=== PATIENT | female | born 1995 | race Caucasian/White ===

== ENCOUNTER 2017-11-21 20:12 | Emergency (ER) | payer MEDICAID, SELFPAY ==
[2017-11-21 20:13] VITALS: BP 147/82; PULSE 121; RESP 20; TEMP 36.7; O2SAT 98; BMI 43.7
--- NOTE | 2017-11-21 20:13 | ED.RN ---
NO OLD EKG'S IN MUSE\
[2017-11-21 20:19] VITALS: PULSE 108; RESP 15; O2SAT 96
--- NOTE | 2017-11-21 20:29 | EKG12_ITS ---
Test Reason : CP Blood Pressure : / mmHG Vent. Rate : 108 BPM Atrial Rate : 108 BPM P-R Int : 128 ms QRS Dur : 074 ms QT Int : 322 ms P-R-T Axes : 059 017 031 degrees QTc Int : 431 ms Sinus tachycardia Otherwise normal ECG Confirmed by CARYL MCDANIELS, LUCITA ([id number]), telegraph editor ELIA JARQUIN ([id number]) on 11/23/2017 2:46:33 PM Referred By: ROBINSON Confirmed By:LUCITA HUTSON MD
--- NOTE | 2017-11-21 20:30 | RAD_ITS ---
STUDY: X-RAY CHEST REASON FOR EXAM: Female, 22 years old. Chest pain, dyspnea TECHNIQUE: Frontal and lateral views COMPARISON: None. FINDINGS: The lungs are clear and expanded. There is no demonstrated pleural abnormality. Normal size heart. Normal mediastinum and crow. Normal visualized pulmonary arteries. Normal visualized aortic arch and descending thoracic aorta. Normal visualized thoracic spine. Normal visualized ribs, clavicles, and shoulders. There is no demonstrated abnormality of the visualized soft tissue structures of the upper abdomen. RAD/Chest PA and Lateral IMPRESSION: Normal x-ray examination of the chest. Electronically Signed: Ramirez Villatoro DO at 21:13 EDT Tel [phone], Service support ,
[2017-11-21 20:47] LABS: Absolute Neutrophil Count 8.9 X10^3/uL (2.0-7.7); Basophil# 0.02 X10^3/uL; Basophil% 0.1 % (0-1); Eosinophil# 0.09 X10^3/uL; Eosinophils% 0.6 % (0-5); Hematocrit 39.8 % (37-47); Hemoglobin 12.6 g/dl (12.0-15.0); Lymphocyte % 32.2 % (19-41); Mean Corp Hgb Conc 31.7 g/gl (32-36); Mean Corpuscular Hgb 27.5 pg (27.0-32.0); Mean Corpuscular Volume 86.7 fL (81-99); Mean Platelet Vol. 9.3 fl (6.2-12.0); Monocyte# 1.21 X10^3/uL; Neutrophil # 8.87 X10^3/uL (2.7-7.7); Neutrophil % 58.2 % (47-70); Platelet Count 343 K/mm3 (150-450); RBC Distribution Width SD 47.7 fl (35.1-43.9); Red Blood Count 4.59 M/mm3 (4.2-5.4); White Blood Count 15.2 K/mm3 (4.4-11.0)
[2017-11-21 20:51] LABS: POSITIVE COUNT NO; POSITIVE DIFFERENTIAL NO; POSITIVE MORPHOLOGY NO
[2017-11-21 20:54] LABS: D-Dimer Quantitative (DVT/PE) < 0.27 FEU/ug/m (0.27-0.49)
[2017-11-21 21:00] LABS: Anion Gap 8 (5-15); BUN 20 mg/dL (7-18); BUN/Creat Ratio 26.5 RATIO (10-20); Calcium,Total 8.4 mg/dL (8.5-10.1); Chloride 106 mmol/L (98-107); Creatinine, Serum 0.76 mg/dL (0.55-1.02); EST Glomerular Filtration Rate 104 mL/min (>60); Est Glom Filt Rate - Afr Amer 125 mL/min (>60); Estimated Creatinine Clearance 84.81 ml/min; Glucose 87 mg/dL (74-106); Potassium 3.6 mmol/L (3.5-5.1); Sodium Level 143 mmol/L (136-145)
[2017-11-21 21:03] VITALS: BP 121/76; PULSE 122; RESP 21; O2SAT 97
[2017-11-21] MEDS: Ketorolac 30 MG/ML Syringe IV (21:03)
--- NOTE | 2017-11-21 21:46 | ED.DCSUM_ITS ---
- ER Visit Summary Date of Service: 11/21/17 Chief Complaint: [Chest pain] History of Present Illness: The patient is a 22 F [presents to the ER with complaint of chest discomfort that started 4 days ago. Patient describes it as retrosternal. Patient states that it is sharp and stabbing and worse with deep breath. Patient initially had intermittent pain but now has become continuous. Patient denies any fever or cough. She denies recent travel or surgery. She does not take oral contraceptives. Patient is a smoker. Patient denies any trauma to her chest. No family history of Marfan's or connective tissue disorders.] Physical Examination: [HEENT-PERRLA, EOMI. Cranial nerves II through XII grossly intact. TMs clear. Mucous membranes moist. No adenopathy. Cardiovascular-regular rate and rhythm without murmur or ectopy Lungs-clear to auscultation, chest wall stable without crepitus or subcu emphysema. Patient has tenderness to palpation over these anterior chest and sternum that reproduces her pain. Abdomen-normoactive bowel sounds, soft, nontender, no rebound or rigidity, no peritoneal signs. Extremities-intact ?4, normal range of motion, normal pulses, atraumatic] Test Results: [EKG obtained on arrival showed a sinus tachycardia with a ventricular rate of 108 bpm with no acute ST segment changes. CBC with differential was slightly elevated white count of 15.2, hemoglobin 12, hematocrit 39.8, platelets 343. Chemistries unremarkable. Troponin was less than 0.02. D-dimer was less than 0.27. Chest x-ray showed nothing acute.] Emergency Department Course and Treatment: [Patient was medicated with Toradol in the emergency department and did have some mild pain relief.] Treatment Plan: [Patient will be treated with naproxen and will be given 12 [place] for severe pain.] Disposition: [Discharged home in stable condition. Patient will be referred to primary care physician instruction assistant principal for no doc. Patient advised to follow-up within the next 3-5 days. Patient to return if increasing pain, fever, shortness of breath, or condition should worsen in any way.] Impression: [Chest wall pain] This note was generated with [employer] dictation software. It may contain incorrect words, spelling, and punctuation that were not noted in review of the chart prior to signing ED Disposition - Plan for ED Patient: Chief Complaint: Chest Pain Referrals: Cassie Del Rosario MD [Primary Care Provider] -
--- NOTE | 2017-11-21 21:46 | ED.DEP ---
ED Disposition - Plan for ED Patient: Chief Complaint: Chest Pain Instructions: ED Chest Pain Costochondritis Prescriptions: Hydrocodone Bitart/Apap 5-325 [[place] 5/325] 1 - 2 tab PO Q4H PRN PRN 3 Days #12 tab PRN Reason: Pain Naproxen [Naprosyn] 500 mg PO BID #20 tab Referrals: Cassie Del Rosario MD [Primary Care Provider] - Mj Durbin MD [STAFF PHYSICIAN] - 3-5 Days
--- NOTE | 2017-11-21 21:49 | DCINST.ED_ITS ---
ED Disposition - Plan for ED Patient: Chief Complaint: Chest Pain Instructions: ED Chest Pain Costochondritis Prescriptions: Hydrocodone Bitart/Apap 5-325 [[place] 5/325] 1 - 2 tab PO Q4H PRN PRN 3 Days #12 tab PRN Reason: Pain Naproxen [Naprosyn] 500 mg PO BID #20 tab Referrals: Cassie Del Rosario MD [Primary Care Provider] - Mj Durbin MD [STAFF PHYSICIAN] - 3-5 Days
[2017-11-21 22:08] VITALS: BP 105/52; PULSE 99; RESP 16; O2SAT 94
[2017-11-21] MEDS: HYDROcodone Bitartrate/Apap 5/325 Tablet PO (22:08)
== END 2017-11-21 22:13 | disposition home or self-care (01) ==
PROVIDERS: Emergency Provider Emergency Medicine; Family Provider Family Medicine; PCP Family Medicine
DX: R07.9 Chest pain, unspecified (principal); R07.89 Other chest pain; J45.909 Unspecified asthma, uncomplicated; R00.0 Tachycardia, unspecified; Z72.0 Tobacco use
CPT/HCPCS: 71046; 80048; 84484; 85025; 85379; 93005; 96374; 99285; A4216

== ENCOUNTER 2017-11-23 22:02 | Emergency (ER) | payer MEDICAID, SELFPAY ==
[2017-11-23 22:03] VITALS: BP 125/87; PULSE 125; RESP 16; TEMP 37.4; O2SAT 97; BMI 41.3
--- NOTE | 2017-11-23 22:36 | NURSING ---
PT STATES THAT THE MEDICATIONS SHE WAS GIVEN THE LAST TIME SHE WAS HERE ARE NOT WORKING.
--- NOTE | 2017-11-23 22:39 | EKG12_ITS ---
Test Reason : CP Blood Pressure : / mmHG Vent. Rate : 118 BPM Atrial Rate : 118 BPM P-R Int : 122 ms QRS Dur : 074 ms QT Int : 332 ms P-R-T Axes : 072 030 041 degrees QTc Int : 465 ms Sinus tachycardia Otherwise normal ECG Confirmed by CARYL MCDANIELS, LUCITA ([id number]), food editor ELIA JARQUIN ([id number]) on 11/27/2017 1:40:06 PM Referred By: JIMY FERNANDO Confirmed By:LUCITA HUTSON MD
[2017-11-23] MEDS: Aspirin 81 MG TAB.CHEW 324 MG PO (22:58)
[2017-11-23] MEDS: LORazepam 2 MG/ML Syringe 1 MG IV (22:59)
[2017-11-23] MEDS: Morphine 4 MG/ML Syringe 2 MG IV (22:59)
[2017-11-23 23:01] VITALS: BP 108/82; PULSE 112; RESP 18; O2SAT 98
[2017-11-23 23:16] LABS: Absolute Lymphocyte Count 2.83 X10^3/ul (0.83-4.51); Absolute Neutrophil Count 8.2 X10^3/uL (2.0-7.7); Basophil# 0.03 X10^3/uL; Basophil% 0.2 % (0-1); Eosinophil# 0.23 X10^3/uL; Eosinophils% 1.9 % (0-5); Hematocrit 37.1 % (37-47); Hemoglobin 11.9 g/dl (12.0-15.0); Lymphocyte # 2.83 X10^3/ul (4.0); Lymphocyte % 23.2 % (19-41); Mean Corp Hgb Conc 32.1 g/gl (32-36); Mean Corpuscular Hgb 27.7 pg (27.0-32.0); Mean Corpuscular Volume 86.5 fL (81-99); Mean Platelet Vol. 9.3 fl (6.2-12.0); Monocyte# 0.85 X10^3/uL; Neutrophil # 8.16 X10^3/uL (2.7-7.7); Platelet Count 329 K/mm3 (150-450); RBC Distribution Width CV 14.5 % (11.6-14.6); RBC Distribution Width SD 45.1 fl (35.1-43.9); Red Blood Count 4.29 M/mm3 (4.2-5.4); White Blood Count 12.2 K/mm3 (4.4-11.0)
[2017-11-23 23:17] LABS: POSITIVE COUNT NO; POSITIVE DIFFERENTIAL NO; POSITIVE MORPHOLOGY NO
[2017-11-23 23:41] LABS: Anion Gap 9 (5-15); BUN 21 mg/dL (7-18); BUN/Creat Ratio 29.1 RATIO (10-20); Calcium,Total 8.2 mg/dL (8.5-10.1); Chloride 105 mmol/L (98-107); Creatinine, Serum 0.72 mg/dL (0.55-1.02); EST Glomerular Filtration Rate 109 mL/min (>60); Est Glom Filt Rate - Afr Amer 132 mL/min (>60); Estimated Creatinine Clearance 98.58 ml/min; Glucose 107 mg/dL (74-106); Sodium Level 142 mmol/L (136-145)
[2017-11-24 00:05] VITALS: BP 114/84; PULSE 123; RESP 14; O2SAT 97
--- NOTE | 2017-11-24 00:20 | CT_ITS ---
STUDY: CTA CHEST REASON FOR EXAM: Female, 22 years old. Back pain chest pain RADIATION DOSAGE (If Supplied By Facility): CTDIvol = ( 11.07 ) mGy, DLP = ( 699.19 ) mGycm TECHNIQUE: The examination was performed with the intravenous administration of 100 ml of Isovue 370 contrast material. Post-processing of the angiographic images was performed, with multiplanar reformation and 3D reconstruction. Individualized dose optimization techniques were used for this CT. COMPARISON: None. FINDINGS: Normal enhancement of the main pulmonary artery and right and left pulmonary arteries. Normal enhancement of the bilateral peripheral pulmonary arteries. There is no demonstrated pulmonary embolism. Normal thoracic aorta and visualized great vessels. There is no demonstrated aortic dissection. Normal heart and pericardium. Normal mediastinum. Normal hilar regions. Normal visualized trachea and bronchi. The lungs are well expanded. Normal pulmonary parenchyma. Normal pleura. Normal chest wall structures. There are multilevel Schmorl's nodes. The liver is fatty infiltrated. CT/CTA Chest W/WO Contrast IMPRESSION: Normal CTA chest examination, without a demonstrated pulmonary embolism or arterial dissection. Multilevel Schmorl's nodes. No visualized acute loss of height or alignment. Electronically Signed: Lizzie Garcia MD at 1:15 EDT Tel , Service support ,
--- NOTE | 2017-11-24 01:26 | ED.VISSUMM ---
- ER Visit Summary Date of Service: 11/24/17 Chief Complaint: [] Chest pain History of Present Illness: The patient is a 22 F [] morbidly obese complaining of diffuse upper thoracic chest and back pain over the last 3-4 days. She reports she was seen in this emergency department 2 days ago and had a chest pain workup including a chest x-ray, EKG, blood work and d-dimer that were all negative. She was diagnosed with costochondritis and provided both NSAIDs and narcotic analgesia. She reports this is minimally improved her symptoms. She is here complaining of worsening of midsternal chest discomfort. Physical Examination: [] Afebrile, vital signs stable. Cardiovascular exam reveals mild tachycardia with regular rhythm. Lungs are clear to auscultation. Abdomen is obese, soft, nontender. There is no significant lower extremity edema. Test Results: [] CBC revealed white blood cell count 12.2. Electrolytes normal. Calcium was slightly low at 8.2. Troponin was negative at less than 0.02. EKG showed normal sinus rhythm rate of 118 without ectopy or ischemic changes, unchanged from previous EKG. CTA chest negative for PE or dissection. Emergency Department Course and Treatment: [] Patient was given aspirin upon arrival as well as intravenous morphine and intravenous Ativan. She had improvement of symptoms on serial exam. However she continued to complain of midsternal discomfort. I obtain a CTA of the chest which revealed no lesions consistent with aortic dissection or pulmonary embolism. Radiologist did note Schmorl's nodes. I am not sure if this is the potential cause of her symptoms as this appears to be a protrusion of tissue into the spinal canal. Treatment Plan: [] Follow-up with PCP. Disposition: [] Discharge, stable. Impression: [] Chest pain, unknown etiology This note was generated with [employer] dictation software. It may contain incorrect words, spelling, and punctuation that were not noted in review of the chart prior to signing ED Disposition - Plan for ED Patient: Chief Complaint: Chest Pain Referrals: Cassie Del Rosario MD [Primary Care Provider] -
--- NOTE | 2017-11-24 01:29 | ED.DEP ---
ED Disposition - Plan for ED Patient: Disposition: Home or Assisted Living Chief Complaint: Chest Pain Instructions: ED Chest Pain Noncardiac Ch Referrals: Cassie Del Rosario MD [Primary Care Provider] -
[2017-11-24 01:33] VITALS: BP 124/87; PULSE 121; RESP 18; O2SAT 98
== END 2017-11-24 01:57 | disposition home or self-care (01) ==
PROVIDERS: Emergency Provider Emergency Medicine; Family Provider Family Medicine; PCP Family Medicine
DX: R07.9 Chest pain, unspecified (principal); J45.909 Unspecified asthma, uncomplicated; E66.01 Morbid (severe) obesity due to excess calories
CPT/HCPCS: 71275; 80048; 84484; 85025; 93005; 96374; 96375; 99284; J7050; Q9967; A4216

== ENCOUNTER 2018-01-07 23:26 | Emergency (ER) | payer MEDICAID, SELFPAY ==
[2018-01-07 23:27] VITALS: BP 142/84; PULSE 104; RESP 18; TEMP 36.8; O2SAT 100; BMI 43.2
--- NOTE | 2018-01-08 00:01 | ED.VISSUMM ---
- ER Visit Summary Date of Service: 01/08/18 Chief Complaint: Abdominal pain History of Present Illness: The patient is a 22 F 1 week history of intermittent epigastric abdominal pain. Pain sometimes worse with meals. Vomiting 3 days ago, none since. No hematemesis. Tolerating oral fluids. Normal stools, last bowel movement today. No NSAID use. She is on omeprazole 40 mg daily for the past month. Admits to tobacco history. No alcohol or illicit drug use. No surgical history. States that previous similar symptoms in the past that were self-limiting. Last menstrual period within the last month, has concerns that she could be . She is taken for separate home pregnancies at all been negative. Physical Examination: General: Alert and oriented ?3, no acute distress HEENT: Normocephalic, atraumatic. Moist mucosa membranes Neck: supple, nontender. Cardiovascular: Regular rate and rhythm, no murmurs Respiratory: Normal breath sounds, symmetric, no distress Abdomen: Soft, mild epigastric tenderness without guarding or rebound, nondistended. Negative Denton's or McBurney's tenderness. No pelvic tenderness. Extremities: Nontender, no edema, pulses intact ?4 Neuro: no focal neurological deficits. Test Results: Serum hCG negative Emergency Department Course and Treatment: Patient nonsurgical abdomen. History concerns for gastritis symptoms. Has been no melena. GI cocktail given with improvement. She is currently on omeprazole, Carafate added. Concerns of , serum hCG obtained which was negative. Treatment Plan: [] Disposition: Discharge Impression: Gastritis This note was generated with [employer] dictation software. It may contain incorrect words, spelling, and punctuation that were not noted in review of the chart prior to signing ED Disposition - Plan for ED Patient: Disposition: Home or Assisted Living Chief Complaint: Abd Pain Diagnosis: Gastritis Instructions: ED Gastritis Prescriptions: Sucralfate [Carafate] 1 gm PO 4X/DAY #60 tablet Referrals: Collins Jauregui MD [Primary Care Provider] - 5-7 Days
[2018-01-08 00:40] LABS: Pregnancy, Serum, hCG Quali. NEGATIVE Negative (0-9 Nonpreg)
[2018-01-08 02:05] VITALS: BP 118/93; PULSE 93; RESP 14; O2SAT 96
== END 2018-01-08 02:06 | disposition home or self-care (01) ==
PROVIDERS: Emergency Provider Emergency Medicine; Family Provider Family Medicine; PCP Family Medicine
DX: K29.70 Gastritis, unspecified, without bleeding (principal); K21.9 Gastro-esophageal reflux disease without esophagitis; Z72.0 Tobacco use
CPT/HCPCS: 84703; 99283

== ENCOUNTER → 2018-02-19 14:13 | Outpatient (CLI) | payer MEDICAID, SELFPAY ==
[2018-02-19 16:35] LABS: Thyroid Stim Hormone (TSH) 1.98 uIU/mL (0.358-3.74)
== END ==
PROVIDERS: Family Provider Family Medicine; PCP Family Medicine; Visit Provider Family Medicine
DX: F32.9 Major depressive disorder, single episode, unspecified (principal)
CPT/HCPCS: 36415; 84443

== ENCOUNTER 2019-04-14 22:28 | Emergency (ER) | payer MEDICAID, SELFPAY ==
[2019-04-14 22:29] VITALS: BP 132/85; PULSE 110; RESP 18; TEMP 36.2; O2SAT 98; BMI 35.4
--- NOTE | 2019-04-14 22:32 | RAD_ITS ---
HISTORY: left foot and ankle pain COMPARISON: None FINDINGS: # of images incl. paperwork: 3 XR Foot Min 3 Views : No fracture or subluxation. No osseous or soft tissue abnormality. The joint spaces are well-maintained. No radiopaque foreign body is seen. RAD/Foot min 3 Views IMPRESSION: Normal left foot. at 2310 Reported and signed by: Ag Rich MD Electronically Signed: Ag Rich MD at 23:09 EDT Tel , Service support ,
--- NOTE | 2019-04-14 22:35 | RAD_ITS ---
HISTORY: left foot and ankle pain COMPARISON: None FINDINGS: # of images incl. paperwork: 3 XR Ankle Min 3 Views : The catheter appears to be thickened with some edema. Most of this I believe is fat. No fracture or osseous abnormality. The ankle mortise is slightly asymmetric, with some widening laterally. Soft tissue swelling is is present focally about the ankle. RAD/Ankle min 3 Views IMPRESSION: Likely no injury to the left ankle. Slight asymmetry, with relative widening into the lateral aspect to the ankle mortise on the oblique views could be normal for this patient at 2308 Reported and signed by: Ag Rich MD Electronically Signed: Ag Rich MD at 23:07 EDT Tel , Service support ,
--- NOTE | 2019-04-14 23:22 | ED.DCSUM_ITS ---
History of Present Illness Chief Complaint: Lower Extremity Injury Informant: Patient Occurred: Today, Weeks - 1 week ago Mechanism/Context: Injury - Foot went into a hole and she complains of pain dorsal lateral foot. Current Severity: Mild Maximum Severity: Moderate Worsened by: Weightbearing Relieved by: Rest Associated Symptoms: Negative for: Parasthesia, Weakness, Loss of Funtion Narrative: Patient is a 23-year-old who presents with injury to the left foot and ankle. This occurred while walking across a baseball field. She states she twisted her foot/ankle when it went into a hole. She went into more than one hole. She denies paresthesia, anesthesia motors. She denies prior injury. Tetanus Immunization: <5 years Prior similar symptoms: No Recent Illness/Hospitalization: No - Past Medical History (1) No significant past medical history Status: Acute Past Medical History - Allergies and Home Meds Allergies/Adverse Reactions: Allergies No Known Allergies Allergy (Verified 04/14/19 22:31) Primary Care Physician: NOT,DEFINED [Primary Care Provider] - Past Medical History: None Surgical History: no surgical history Smoking Status: Never smoker Alcohol: None Drugs: None Review of Systems General: Denies: Chills, Fever, Malaise, Subjective, Sweats Musculoskeletal: Reports: Extremity Pain. Denies: Myalgias, Arthralgias, Neck pain, Back pain, Swelling, -, - Skin: Denies: Rash, Wounds Neurological: Denies: Weakness, Parasthesia, Numbness Hematologic: Denies: Easy bruising, Easy bleeding Allergy: Denies: Uticaria, Swelling of the mouth Physical Exam Vital Signs/Narrative: Vital Signs Temp Pulse Resp BP Pulse Ox 04/14/19 22:29 97.2 F L 110 H 18 132/85 H 98 Inital Vital Signs reviewed: Yes - Extremity Exam Left Tib Fib: Negative for: Abrasion, Contusion, Deformity, Edema, Hematoma, Limited ROM, - Left Ankle: Negative for: Abrasion, Contusion, Deformity, Edema, Hematoma, Limited ROM, - - There is no pain the patient over the lateral medial malleolus. No laxity with drawer testing. There is pain palpation over the anterior talofibular ligament. Left Foot: Negative for: Abrasion, Contusion, Deformity, Edema, Hematoma, Limited ROM, - - There is pain to palpation over the fifth metatarsal. Left Toe: Negative for: Abrasion, Contusion, Deformity, Edema, Hematoma, Limited ROM, - General: Well nourished, Well developed, Obese Head: Normocephalic, Atraumatic Eyes: Perrl, EOMI. Negative for: Pale conjunctiva, Scleral icterus, - Cardiovascular: Regular rate, Regular rhythm Respiratory: No distress Skin: Normal color, No rash. Negative for: Cyanosis, Diaphoresis, Jaundice Neurological: Alert, Oriented x3, Cranial nerves II-XII grossly intact, Normal Strength, Normal Sensation. Negative for: Normal Gait Psychological: Normal affect Diagnostic/Tx/Re-eval Chest X-Ray - ED: Read by ED Physician, - - Review x-ray of the ankle and 3 view x-ray of the foot was obtained. There is slight asymmetry of the ankle joint /mortise. With no pain to palpation and laxity with drawer testing suspect this is an anatomical variant. X-ray of the foot reveals no evidence of fracture or foreign body. There is no evidence of subluxation either. Specifically there is no fracture fifth metatarsal. - Medical Decision Making X-ray of the foot and ankle was placed per nurse protocol. Since patient's had persistent pain and localizes pain to the fifth metatarsal she needed an x-ray to rule out fracture versus contusion versus strain. ED Disposition - Plan for ED Patient: Disposition: Home or Assisted Living Diagnosis: Sprain of anterior talofibular ligament of left ankle, Strain of tendon of left foot and ankle Instructions: Sprain Foot Referrals: NOT,DEFINED [Primary Care Provider] - Additional Instructions: Take either 4 Advil every 8 hours or 2 Aleve every 12 hours for the next 3 to 5 days for your pain. Recommend ice 6-8 times a day for 20 to 30 minutes per application. Recommend drawing the alphabet with your foot 4-6 times a day for the next 5 to 7 days. Do not wear heeled shoes and no flip-flops. No inclines or climbing ladders.
[2019-04-14 23:59] VITALS: BP 132/85; PULSE 101; RESP 17; O2SAT 98
== END 2019-04-15 | disposition home or self-care (01) ==
PROVIDERS: Emergency Provider Emergency Medicine; Family Provider Family Medicine; PCP Family Medicine
DX: S93.492A Sprain of other ligament of left ankle, initial encounter (principal); S96.912A Strain of unspecified muscle and tendon at ankle and foot level, left foot, initial encounter; X50.1XXA Overexertion from prolonged static or awkward postures, initial encounter; Y93.01 Activity, walking, marching and hiking; Y92.320 Baseball field as the place of occurrence of the external cause; Y99.8 Other external cause status
CPT/HCPCS: 73610; 73630; 99282

== ENCOUNTER 2019-12-04 20:42 | Emergency (ER) | payer BC, SELFPAY ==
[2019-12-04 20:44] VITALS: BP 123/84; PULSE 120; RESP 18; TEMP 36.7; O2SAT 98; BMI 47.6
--- NOTE | 2019-12-04 21:05 | ED.VISSUMM ---
- ER Visit Summary Date of Service: 12/04/19 Chief Complaint: Vaginal bleeding mild cramping History of Present Illness: The patient is a 24 F states she took a test 1 to 2 weeks ago. Believes she is about 6 weeks . She is never been before. G1, P0 Ab0. Last normal menstrual period was October 23, 2019. No history of any prior STD or PID. No dysuria. Patient states today had some cramping and some mild vaginal bleeding. Not bleeding heavy. Currently no significant pain. No discharge. No passage of tissue. She is made a appointment but does not for 1 to 2 weeks at the [facility]. Physical Examination: Well-appearing 24-year-old female no acute distress vital signs stable afebrile. H EENT exam unremarkable. Lungs clear to auscultation. Heart regular rhythm rate about 110 no murmur. Abdomen is soft nontender normal bowel sounds no peritoneal signs. No significant suprapubic tenderness. Patient is moving all 4 extremities. Neurologically she is awake and alert with no focal motor deficits. Test Results: ABO Rh is O+. Quantitative hCG equals 1, 481. Pelvic ultrasound done by surveying technician read by the radiologist as positive gestational sac at 4 weeks 6 days. No yolk sac or embryo seen. Estimated date of delivery 08/06/2020. Repeat exam patient doing well at 10:57 PM and will be discharged to home with follow-up with her POLICE SHIFT COMMANDER. Emergency Department Course and Treatment: Patient with reported early with mild vaginal bleeding. Miscarriage versus other etiology. Ectopics in the differential but she is currently on limited no pain whatsoever. Treatment Plan: Follow-up with Dr. Carly Claire at the [facility]. Tylenol for pain. Return if much heavier bleeding. Disposition: Discharge Impression: Acute vaginal bleeding Threatened miscarriage at 4 weeks and 6 days by ultrasound Blood type O+ This note was generated with [employer] dictation software. It may contain incorrect words, spelling, and punctuation that were not noted in review of the chart prior to signing ED Disposition - Plan for ED Patient: Referrals: Collins Jauregui MD [STAFF PHYSICIAN] -
[2019-12-04 22:01] LABS: hCG Titer Quant., Serum 1481 mIU/mL (1-3)
--- NOTE | 2019-12-04 22:05 | US_ITS ---
STUDY: FIRST TRIMESTER OBSTETRICAL ULTRASOUND REASON FOR EXAM: Female, 24 years old BLEEDING AND CRAMPING - STARTED 3 HOURS AGO beta-hCG 1481 LMP: 10/23/2019 TECHNIQUE: Transvaginal TECHNICAL QUALITY: Adequate. PRIOR ULTRASOUND: None. FINDINGS: There is visualization of a single gestational sac in a normal intrauterine position. The mean sac diameter (MSD) measures 3.3 mm, indicating an estimated gestational age (EGA) of 4 weeks, 6 days. The gestational sac shape is within normal limits. No yolk sac or embryo seen at this time. The estimated gestation age (EGA) by LMP is 6 weeks, 0 days. The estimated date of delivery (EDWINA) by LMP is 07/29/2020. The estimated gestation age (EGA) by US is 4 weeks, 6 days. The estimated date of delivery (EDWINA) by US is 08/06/2020. The uterus measures 8.1 x 6.1 x 4.2 cm. There is no demonstrated uterine fibroid. The cervix is closed. The right ovary measures 2.7 x 2.1 x 1.6 cm. There is no right ovarian cyst. There is no visualized right adnexal mass or complex lesion. The left ovary measures 3.9 x 2.8 x 2.2 cm. Left ovary corpus luteum cyst measuring 2.2 x 1.6 x 1.4 cm. There is no visualized left adnexal mass or complex lesion. There is minimal fluid in the cul de sac. US/Transvaginal w/Preg US IMPRESSION: 3.3 mm intrauterine gestational sac with sonographic age of 4 weeks 6 days. No yolk sac or pole is seen at this time. It is likely too early for sonographic visualization of those structures and continued ultrasound and beta hCG follow up is needed. Electronically Signed: Naren Pina MD at 22:52 EDT Tel , Service support ,
--- NOTE | 2019-12-04 23:00 | ED.DEP ---
ED Disposition - Plan for ED Patient: Disposition: Home or Assisted Living Instructions: ED Possible Miscarriage Threatened Referrals: Carly Claire MD [STAFF PHYSICIAN] - As soon as possible Additional Instructions: Tylenol for any cramping. Plenty of fluids. Currently you have a at about 4 weeks and 6 days. Anytime you have bleeding this early in the of a threatened miscarriage but at this time everything is still okay. Call and follow-up with your TALENT RECRUITER this coming week. Return emergency department if you have much heavier bleeding.
[2019-12-04 23:14] VITALS: BP 122/84; PULSE 109; RESP 16; O2SAT 97
== END 2019-12-04 23:16 | disposition home or self-care (01) ==
PROVIDERS: Emergency Provider Emergency Medicine
DX: O20.0 Threatened abortion (principal); Z3A.01 Less than 8 weeks gestation of pregnancy; Z67.40 Type O blood, Rh positive; Z72.0 Tobacco use
CPT/HCPCS: 76817; 84702; 86900; 86901; 99283; A4216

== ENCOUNTER → 2020-01-22 12:05 | Outpatient (CLI) | payer BC, SELFPAY ==
[2020-01-22 12:06] VITALS: BMI 43.2
[2020-01-22 12:13] VITALS: BP 136/117; PULSE 86; RESP 18; TEMP 37.2; O2SAT 98
[2020-01-22] MEDS: 0.9% NaCl Peripheral Flush Adult/Peds IV (12:20)
[2020-01-22] MEDS: Ondansetron 4 MG/2 ML Vial IV (12:28)
[2020-01-22] MEDS: Dextrose 5%-Lactated Ringers 1,000 ML 999 ML IV (12:34)
[2020-01-22 14:16] LABS: Absolute Lymphocyte Count 1.01 X10^3/uL (0.83-4.51); Basophil# 0.01 X10^3/uL; Basophil% 0.1 % (0-1); Eosinophil# 0.02 X10^3/uL; Eosinophils% 0.2 % (0-5); Hematocrit 35.2 % (37-47); Hemoglobin 11.9 g/dL (12.0-15.0); Lymphocyte # 1.01 X10^3/ul (4.0); Mean Corp Hgb Conc 33.8 g/dL (32-36); Mean Corpuscular Hgb 27.9 pg (27.0-32.0); Mean Corpuscular Volume 82.4 fL (81-99); Mean Platelet Vol. 9.8 fl (6.2-12.0); Monocyte% 4.7 % (0-10); NRBC Flagged by Analyzer 0 % (0-5); Neutrophil # 6.95 X10^3/uL (2.7-7.7); Neutrophil % 82.4 % (47-70); Platelet Count 246 K/mm3 (150-450); RBC Distribution Width CV 14.2 % (11.6-14.6); RBC Distribution Width SD 41.8 fl (35.1-43.9); Red Blood Count 4.27 M/mm3 (4.2-5.4); White Blood Count 8.4 K/mm3 (4.4-11.0)
[2020-01-22 14:34] LABS: Hemoglobin A1c 4.9 % (3.8-5.6)
[2020-01-22 14:41] LABS: Thyroid Stim Hormone (TSH) 0.64 uIU/mL (0.358-3.74)
[2020-01-22 15:13] LABS: NATERA MAILED SPECIMEN
[2020-01-22 15:18] LABS: HIV - WCH Non-Reactive (Nonreactive); Hepatitis B Surface Antigen Non-Reactive (Nonreactive); Hepatitis C Antibody Non-Reactive (Nonreactive); Rubella IgG 70.3 IU/mL
[2020-01-29 03:36] LABS: Rapid Plasmin Reagin (RPR) NONREACTIVE (NONREACTIVE)
== END ==
PROVIDERS: PCP Family Medicine; Referring Provider Obstetrics & Gynecology; Visit Provider Obstetrics & Gynecology
DX: O12.10 Gestational proteinuria, unspecified trimester (principal); E86.0 Dehydration
CPT/HCPCS: 96361 ×2; 96374; 83036; 84443; 85025; 86592; 86703; 86762; 86803; 86850; 86900; 86901; 87340; A4216; J2405

== ENCOUNTER 2020-02-12 20:49 | Emergency (ER) | payer BC, SELFPAY ==
[2020-02-12 20:49] VITALS: BMI 47.6
[2020-02-12 20:50] VITALS: BP 129/72; PULSE 90; RESP 18; TEMP 37; O2SAT 95; BMI 41.4
[2020-02-12 21:21] LABS: Color, Urine Yellow (Yellow); Glucose, Dipstick Normal (Normal); Ketone-Dipstick 5 mg/dl (Negative); Leukocyte Esterase-Dipstick 100 /ul (Negative); Nitrite-Dipstick Negative (Negative); Occult Blood-Urine 250 /ul (Negative); Protein-Dipstick 30 mg/dl (Negative); Specific Gravity, Urine 1.025 (1.002-1.030); Urine Bilirubin Dipstick Negative (Negative); Urine Clarity Sl. Cloudy (Clear); Urine Urobilinogen 1 mg/dl (Normal)
[2020-02-12 21:32] LABS: Bacteria RARE /hpf (None Seen); Mucous, Urine 1+ /hpf (<or=2+); Red Blood Cells-Urine 10-25 SEEN /hpf (0-5); Squamous Epithelial Cells - UA 0-5 SEEN /hpf (5-10); White Blood Cells 0-5 SEEN /hpf (0-5)
--- NOTE | 2020-02-12 22:40 | US_ITS ---
STUDY: SECOND AND THIRD TRIMESTER OBSTETRICAL ULTRASOUND - LIMITED REASON FOR EXAM: Female, 24 years old BLEEDING OFF AND ON DURING WHOLE NOW CONSTANT W CRAMPS PRIOR ULTRASOUND: None. TECHNIQUE: Transabdominal TECHNICAL QUALITY: Adequate. FINDINGS: There is a single intrauterine fetus. The fetus is in a breech presentation. There is demonstrated cardiac activity with a heart rate of 172 bpm. There is a normal amniotic fluid volume. The largest amniotic fluid pocket measures 3.0 x 2.54 cm. The placenta is posterior and low lying but not previa in location. There are Grade 0 placental changes. The cervix measures 3 cm in length. BIOMETRY: BPD: 2.50 cm: 14 weeks, 3 days HC: 10.75 cm: 15 weeks, 1 days AC: 9.27 cm: 15 weeks, 4 days FL: 1.66 cm: 15 weeks, 0 days age by current US: 15 weeks, 1 days. EDWINA by current US: August 04, 2020. Estimated weight: 116 grams, +/- 17 grams anatomic evaluation can be obtained at 18 and 22 weeks. There is mild dilatation of the pelvic collecting systems of the bilateral kidneys suggesting mild hydronephrosis. US/Transvaginal w/Preg US IMPRESSION: 1. Live IUP at 15 weeks and 1 day. 2. anatomic evaluation can be obtained at 18 and 22 weeks. 3. There is mild dilatation of the pelvic collecting systems of the bilateral kidneys suggesting mild hydronephrosis. Electronically Signed: Mukesh Zayas MD at 23:42 EDT , Service support ,
--- NOTE | 2020-02-12 22:42 | ED.DCSUM_ITS ---
History of Present Illness Chief Complaint: Vag Bld, Preg Informant: Patient Narrative: Stated she is been having vaginal bleeding with blood on one panty liner for last 4 hours. This is her first . She is approximately 15 weeks . She had an ultrasound initially. She sees Dr. Beard. She has had no complications other than some mild early bleeding in her first trimester. No trauma. She has not noticed any products in the bleeding. She does not know her blood type. She has very mild lower abdominal diffuse cramping. Current severity is mild. - Past Medical History (1) ASCUS (atypical squamous cells of undetermined significance) on gynecologic Papanicolaou smear complicating , antepartum Status: Acute Comment: negative HPV 12/2019 (2) Depression affecting Status: Acute Comment: counseling encouraged. (3) Family history of thyroid disorder Status: Acute Comment: TSH ordered (4) Nausea/vomiting in Status: Acute Comment: promethazine ordered (5) No significant past medical history Status: Acute (6) Obesity affecting Status: Acute Comment: BMI 41.1- diabetic testing supplies ordered to check x1 week fasting and 2 hours post prandial HBGA1C ordered (7) Status: Acute Comment: declines carrier. NIPT low risk (8) Proteinuria affecting Status: Acute Comment: urine PCR sent (9) Smoking (tobacco) complicating , unspecified trimester Status: Acute Comment: encouraged cessation (10) Supervision of high risk , antepartum Status: Acute Comment: urine culture, tox, gc/c- negative EDWINA 08/06/2020 Spouse: Slade Past Medical History - Allergies and Home Meds Allergies/Adverse Reactions: Allergies No Known Allergies Allergy (Verified 02/12/20 20:52) Primary Care Physician: Jennifer Beard MD [STAFF PHYSICIAN] - Prior records reviewed: Yes Past Medical History: - - Problem list, asthma Surgical History: no surgical history Lives: With Family Smoking Status: Light Smoker (<10/day) Alcohol: None Drugs: None Review of Systems General: Denies: Chills, Fever, Sweats Eyes: Denies: Visual changes - bilaterally, Diplopia ENT: Denies: Rhinorrhea, Sore throat Cardiovascular: Denies: Chest pain, Palpitations Respiratory: Denies: Dyspnea, Cough, Dyspnea on exertion Gastrointestinal: Reports: Abdominal pain, - - Vaginal bleeding in . Denies: Nausea, Vomiting, Diarrhea, Melena, Hematochezia Genitourinary: Denies: Dysuria, Hematuria, Frequency Musculoskeletal: Denies: Back pain, Extremity Pain Skin: Denies: Rash, Wounds Neurological: Denies: Headache, Weakness, Numbness Physical Exam Vital Signs/Narrative: Vital Signs Temp Pulse Resp BP Pulse Ox 02/12/20 20:50 98.6 F 90 18 129/72 H 95 General: Well nourished, Well developed, No Acute Distress Head: Normocephalic, Atraumatic Eyes: Perrl, EOMI ENT: Moist mucous membranes, No rhinorrhea Neck: Supple, Nontender Cardiovascular: Regular rate, Regular rhythm, No murmurs Respiratory: No distress, CTA bilaterally, Chest nontender Abdomen: Soft, Nontender, Nondistended, Normal bowel sounds : - - Exam shows a scant amount of bleeding from a closed cervical office. No products. Rest of her pelvic is normal Back: Nontender, Normal Inspection Extremities: Nontender, No edema Skin: Normal color, No rash Neurological: Alert, Oriented x3, Cranial nerves II-XII grossly intact, Normal Strength, Normal Sensation Psychological: Normal affect, Normal Mood Diagnostic/Tx/Re-eval - Medical Decision Making Patient given oral Tylenol. Lab work obtained. Pelvic ultrasound obtained.. Ultrasound shows a single live intrauterine at 15 weeks 1 day dates. Normal heart rate. Lab work shows a very slight leukocytosis. Red blood cell count normal. Patient is O+ therefore does not need RhoGam. Urinalysis shows no evidence of infection. Pelvic done myself shows just a slight amount of bleeding without any opening to her cervix. There is no products. Patient is reassured. She will follow-up with her CUSTOMER SALES ADVISOR. She will continue to monitor the bleeding and return if she worsens ED Disposition - Plan for ED Patient: Disposition: Home or Assisted Living Diagnosis: Vaginal bleeding during Instructions: ED Bleed Irregular Vaginal Referrals: Jennifer Beard MD [STAFF PHYSICIAN] -
[2020-02-12] MEDS: Acetaminophen 325 MG Tablet 650 MG PO (22:47)
[2020-02-12 23:25] LABS: Absolute Neutrophil Count 8.3 X10^3/uL (2.0-7.7); Basophil# 0.02 X10^3/uL; Basophil% 0.2 % (0-1); Eosinophil# 0.07 X10^3/uL; Eosinophils% 0.6 % (0-5); Hematocrit 37.4 % (37-47); Hemoglobin 12.2 g/dL (12.0-15.0); Mean Corp Hgb Conc 32.6 g/dL (32-36); Mean Corpuscular Hgb 28.4 pg (27.0-32.0); Mean Platelet Vol. 10.1 fl (6.2-12.0); Monocyte% 5.4 % (0-10); NRBC Flagged by Analyzer 0 % (0-5); Neutrophil # 8.34 X10^3/uL (2.7-7.7); Neutrophil % 75.3 % (47-70); Platelet Count 298 K/mm3 (150-450); RBC Distribution Width CV 14.6 % (11.6-14.6); RBC Distribution Width SD 46.8 fl (35.1-43.9); White Blood Count 11.1 K/mm3 (4.4-11.0)
[2020-02-12 23:51] LABS: hCG Titer Quant., Serum 36629 mIU/mL (1-3)
[2020-02-12 23:59] VITALS: PULSE 70; RESP 18; O2SAT 98
== END 2020-02-13 00:03 | disposition home or self-care (01) ==
PROVIDERS: Emergency Provider Emergency Medicine
DX: O46.92 Antepartum hemorrhage, unspecified, second trimester (principal); O99.212 Obesity complicating pregnancy, second trimester; Z3A.15 15 weeks gestation of pregnancy; O99.512 Diseases of the respiratory system complicating pregnancy, second trimester; J45.909 Unspecified asthma, uncomplicated
CPT/HCPCS: 76817; 81001; 84702; 85025; 86900; 86901; 99283; A4216

== ENCOUNTER → 2020-02-20 14:05 | Outpatient (CLI) | payer BC, SELFPAY ==
[2020-02-20 13:35] VITALS: BMI 41.4
[2020-02-20 14:36] LABS: ROM Internal Control Test YES-OK TO RESULT pt. (Internal QC)
[2020-02-20 14:39] LABS: ROM Patient Test POSITIVE (Negative)
[2020-02-20 18:48] LABS: Chlamydia Trachomatis by PCR Negative (Negative); Neisserai gonorrhoeae by PCR Negative (Negative); Probe Check PASS; Sample Adequacy Control PASS; Specimen Processing Control PASS
== END ==
LOC: LABSPEC 14:06
PROVIDERS: Visit Provider Obstetrics & Gynecology
DX: O20.9 Hemorrhage in early pregnancy, unspecified (principal); O42.90 Premature rupture of membranes, unspecified as to length of time between rupture and onset of labor, unspecified weeks of gestation; Z3A.00 Weeks of gestation of pregnancy not specified
CPT/HCPCS: 84112; 87070; 87077; 87086; 87088; 87205; 87491; 87591

== ENCOUNTER 2020-02-25 03:15 | Day surgery (SDC) | payer BC, SELFPAY ==
[2020-02-20 13:35] VITALS: BMI 41.4
[2020-02-25] VITALS (9 sets, daily range): BP systolic 95–120; BP diastolic 59–77; PULSE 78–102; RESP 16–18; TEMP 36.6–37.2; O2SAT 92–100; BMI 41.3
--- NOTE | 2020-02-25 03:28 | ED.VIS.FEGU ---
History of Present Illness Chief Complaint: Vag Bleeding Informant: Patient, EMS Narrative: Patient presenting for evaluation secondary to a miscarriage. Patient is a G1, P0 at 16 weeks. Patient has had recent complication of PPROM with oligohydramnios. Patient tells me that she was told at a recent ultrasound that she had no amniotic fluid, and there was a high likelihood of her miscarrying. Patient states that she was feeling fine all day today, and then woke up and was having pelvic cramps and when she went to the bathroom she passed the fetus. EMS was contacted, the umbilical cord was clamped and cut by EMS, and the patient was brought to the emergency department for further evaluation. Patient reports that she is continuing to have pelvic cramping. She is unsure of her blood type. Review of systems otherwise negative. Past Medical History - Allergies and Home Meds Allergies/Adverse Reactions: Allergies No Known Allergies Allergy (Verified 02/25/20 03:22) Prior records reviewed: Yes Past Medical History: None Surgical History: no surgical history Lives: Spouse/ Significant Other Smoking Status: Current every day smoker Alcohol: None Drugs: None Review of Systems All systems negative except as indicated General: Denies: Chills, Fever, Sweats Eyes: Denies: Visual changes - bilaterally, Diplopia ENT: Denies: Rhinorrhea, Sore throat Cardiovascular: Denies: Chest pain, Palpitations Respiratory: Denies: Dyspnea, Cough, Dyspnea on exertion Gastrointestinal: Denies: Abdominal pain, Nausea, Vomiting, Diarrhea, Melena, Hematochezia Genitourinary: Reports: - - Pelvic pain and miscarriage Musculoskeletal: Denies: Back pain, Extremity Pain Skin: Denies: Rash, Wounds Neurological: Denies: Headache, Weakness, Numbness Physical Exam Vital Signs/Narrative: Vital Signs Temp Pulse Resp BP Pulse Ox 02/25/20 03:17 97.8 F 93 17 118/77 95 Inital Vital Signs reviewed: Yes General: Well nourished, Well developed, Obese Head: Normocephalic, Atraumatic Eyes: Perrl, EOMI ENT: Moist mucous membranes, No rhinorrhea Neck: Supple, Nontender Cardiovascular: Regular rate, Regular rhythm, No murmurs Respiratory: No distress, CTA bilaterally, Chest nontender Abdomen: Soft, Nondistended, Normal bowel sounds, Tender - Pelvic cramping and tenderness : Speculum exam: - - Chaperoned external exam shows a mild amount of vaginal bleeding. Patient's umbilical cord is still present at the vaginal office and is clamped. Back: Nontender, Normal Inspection Extremities: Nontender, No edema Skin: Normal color, No rash Neurological: Alert, Oriented x3, Cranial nerves II-XII grossly intact, Normal Strength, Normal Sensation Psychological: Normal affect Diagnostic/Tx/Re-eval - Medical Decision/Diagnostic Studies Patient presented secondary to a miscarriage. EMS did present with the fetus in a specimen bag, I examined the fetus and it does not have any signs of life and does seem consistent with that of a 16-week gestation and seems to be complete without any missing parts. IV was established laboratory studies were obtained. I reviewed the patient's records she has type a positive blood, there is no indication for RhoGam. I immediately contacted the patient's REINFORCED IRONWORKER Dr. Beard who came in to see the patient. Patient was ordered fentanyl for treatment of her pain. I did perform some fundal massage on the patient while waiting for REINFORCED IRONWORKER to present. REINFORCED IRONWORKER presented and did a exam, and reported that the patient's cervix was closed and would prefer her to have a D&C. Patient will be dispositioned to the operating room. Critical care time (excluding procedures): 30-74 minutes ED Disposition - Plan for ED Patient: Disposition: [facility] Diagnosis: Incomplete miscarriage
[2020-02-25 03:32] LABS: Absolute Lymphocyte Count 2.18 X10^3/uL (0.83-4.51); Absolute Neutrophil Count 9.1 X10^3/uL (2.0-7.7); Basophil# 0.03 X10^3/uL; Basophil% 0.2 % (0-1); Eosinophil# 0.11 X10^3/uL; Eosinophils% 0.9 % (0-5); Hematocrit 35.1 % (37-47); Hemoglobin 11.6 g/dL (12.0-15.0); Lymphocyte # 2.18 X10^3/ul (4.0); Lymphocyte % 17.7 % (19-41); Mean Corpuscular Hgb 28.2 pg (27.0-32.0); Mean Corpuscular Volume 85.4 fL (81-99); Mean Platelet Vol. 9.2 fl (6.2-12.0); Monocyte# 0.76 X10^3/uL; Monocyte% 6.2 % (0-10); NRBC Flagged by Analyzer 0 % (0-5); Neutrophil # 9.11 X10^3/uL (2.7-7.7); Neutrophil % 74.2 % (47-70); Platelet Count 316 K/mm3 (150-450); RBC Distribution Width CV 14.4 % (11.6-14.6); RBC Distribution Width SD 44.3 fl (35.1-43.9); Red Blood Count 4.11 M/mm3 (4.2-5.4); White Blood Count 12.3 K/mm3 (4.4-11.0)
[2020-02-25 03:45] LABS: Anion Gap 8 (5-15); BUN 8 mg/dL (7-18); BUN/Creat Ratio 13.4 RATIO (10-20); Calcium,Total 8.9 mg/dL (8.5-10.1); Chloride 105 mmol/L (98-107); EST Glomerular Filtration Rate 133 mL/min (>60); Est Glom Filt Rate - Afr Amer 161 mL/min (>60); Estimated Creatinine Clearance 116.32 ml/min; Glucose 95 mg/dL (74-106); Potassium 3.3 mmol/L (3.5-5.1); Sodium Level 137 mmol/L (136-145)
[2020-02-25] MEDS: fentaNYL 100 MCG/2 ML Ampul 50 MCG IV (03:56)
--- NOTE | 2020-02-25 04:13 | PCM.HP.OB ---
- Problem List (1) Incomplete Status: Acute (2) Retained placenta after delivery without hemorrhage but with other complication Status: Acute (3) Proteinuria affecting Status: Acute Comment: urine PCR sent (4) Nausea/vomiting in Status: Acute Comment: promethazine ordered (5) ASCUS (atypical squamous cells of undetermined significance) on gynecologic Papanicolaou smear complicating , antepartum Status: Acute Comment: negative HPV 12/2019 (6) Depression affecting Status: Acute Comment: counseling encouraged. (7) Supervision of high risk , antepartum Status: Acute Comment: PRR EDWINA 08/06/2020 girl [place] Spouse: Slade (8) Smoking (tobacco) complicating , unspecified trimester Status: Acute Comment: encouraged cessation (9) Obesity affecting Status: Acute Comment: BMI 41.1- diabetic testing supplies ordered to check x1 week fasting and 2 hours post prandial HBGA1C ordered (10) Status: Acute Qualifiers: Weeks of gestation: 16 weeks Qualified Code(s): Z3A.16 - 16 weeks gestation of Comment: declines carrier. NIPT low risk History Date of Admission: 02/25/20 Final EDWINA: 08/06/20 Gestational age: 16 Weeks and 5 Days History of this : This is a 24 year-old, , at 16 weeks 5 days gestational age presents after spontaneous expulsion of fetus at home. Patient had P PROM last and was evaluated by maternal- medicine on Sunday and expectant management was recommended with infection precautions reviewed. Patient experienced some cramping and pain last night but denies any fevers or foul-smelling discharge. Patient awoke to use the restroom this morning and spontaneously passed the fetus. EMS crew arrived and clamped and cut the cord and she presented to the ED for evaluation.. Medical History: Medical History (Last Reviewed 02/20/20 @ 13:32 by Elizabeth Ortega) Asthma J45.909 Obesity E66.9 Chronic back pain M54.9, G89.29 Surgical History: Surgical History (Last Reviewed 02/20/20 @ 13:32 by Elizabeth Ortega) No significant past surgical history Allergies No Known Allergies Allergy (Verified 02/25/20 03:22) Home Medications: Home Medications albuterol sulfate 90 mcg/actuation breath activated powder inhaler 1 inh INHALATION Q4H PRN PRN 01/22/20 blood sugar diagnostic See Rx Instructions .ROUTE .MEDSUPPLY #100 ea 01/22/20 blood-glucose meter See Rx Instructions .ROUTE .MEDSUPPLY #1 ea 01/22/20 multivitamin no.47-iron fum 27 mg-folate no.1 1 mg-dha 300 mg capsule 1 cap PO DAILY 01/22/20 promethazine 12.5 mg tablet 12.5 mg PO Q6H PRN #60 tab 01/22/20 metronidazole 500 mg tablet 500 mg PO BID #14 tab 02/23/20 Smoking Status: Current every day smoker Alcohol: None Number of Fetus(es): 1 NST - FHR Rate Baby A Baseline: 0 History Past Pregnancies: Past Pregnancies Delivery Date Name GA/ Weeks Outcome Route Wt Sex Labor Length Anesthesia Delivery Location Provider FOB Labs: Mom's Labs & Results 02/25/20 02/25/20 03:20 03:20 WBC 12.3 H RBC 4.11 L Hgb 11.6 L Hct 35.1 L MCV 85.4 MCH 28.2 MCHC 33.0 RDW Std Deviation 44.3 H RDW Coeff of Angelina 14.4 Plt Count 316 MPV 9.2 Immature Gran % (Auto) 0.800 Neut % (Auto) 74.2 H Lymph % (Auto) 17.7 L Moffat % (Auto) 6.2 Eos % (Auto) 0.9 Baso % (Auto) 0.2 Absolute Neuts (auto) 9.1 H Absolute Lymphs (auto) 2.18 Nucleated RBC % 0 Sodium 137 Potassium 3.3 L Chloride 105 Carbon Dioxide 24.0 Anion Gap 8 BUN 8 Creatinine 0.60 Estim Creat Clear Calc 116.32 Est GFR (MDRD) Af Amer 161 Est GFR (MDRD) Non-Af 133 BUN/Creatinine Ratio 13.4 Glucose 95 Calcium 8.9 Social History Smoking Status Current every day smoker Expected Delivery Method: Spontaneous Vaginal Review of Systems Constitutional: Denies: Fever, Malaise Eyes: Denies: Blurred vision, Vision Change HEENT: Denies: Head Aches, Visual Changes Cardiovascular: Denies: Chest Pain, Palpitations Respiratory: Denies: Cough, Shortness of Breath, Wheezing Gastrointestinal: Reports: Abdominal Pain, Nausea. Denies: Diarrhea, Vomiting Genitourinary: Denies: Dysuria, Hematuria Gynecological: Reports: Vaginal bleeding Musculoskeletal: Denies: Joint Pain, Muscle pain Skin: Denies: Lesions, Rash Neurological: Denies: Blurred vision, Focal weakness, Headaches Psychiatric: Denies: Anxiety, Depression Endocrine: Denies: Heat/ Cold Intolerance Hematologic/ Lymphatic: Denies: Easy Bruising, Easy Bleeding Physical Exam Vitals: Vital Signs Temp Pulse Resp BP Pulse Ox 97.8 F 82 18 120/59 L 100 02/25/20 03:17 02/25/20 04:06 02/25/20 04:06 02/25/20 04:06 02/25/20 04:06 General: Alert, Cooperative, No apparent distress HEENT: Atraumatic, Normocephalic. Negative for: Thyromegaly, Lymphadenopathy Cardiovascular: Regular rate Lungs: Normal air movement Abdomen: Soft, Non Tender Neurological: Deep Tendon Reflexes 2+/4 and Symmetrical, Neuro grossly intact. Negative for: Clonus MANAGER ENERGY: Normal external genitalia. Negative for: Vulvar lesions Cervix Dilation (cm): 1.5 Assessment/Plan All Active Problems (Last Reviewed 02/20/20 @ 13:32 by Elizabeth Ortega) Incomplete (Acute) Retained placenta after delivery without hemorrhage but with other complication (Acute) Proteinuria affecting (Acute) Nausea/vomiting in (Acute) ASCUS (atypical squamous cells of undetermined significance) on gynecologic Papanicolaou smear complicating , antepartum (Acute) Depression affecting (Acute) Supervision of high risk , antepartum (Acute) Smoking (tobacco) complicating , unspecified trimester (Acute) Obesity affecting (Acute) (Acute) Family history of thyroid disorder (Resolved) No significant past medical history (Resolved) This is a 24 year-old, G1, P0 at 16 weeks 5 days gestational age presents with incomplete P PROM with subsequent delivery within 1 week, no signs of chorioamnionitis but retained placental tissue recommend proceeding with suction D&C. RiskS benefits and alternatives were discussed with the patient and her and she wished to proceed with surgery..
--- NOTE | 2020-02-25 04:20 | PCM.OPRPT ---
Problem List (1) Incomplete Status: Acute (2) Retained placenta after delivery without hemorrhage but with other complication Status: Acute (3) Proteinuria affecting Status: Acute Comment: urine PCR sent (4) Nausea/vomiting in Status: Acute Comment: promethazine ordered (5) ASCUS (atypical squamous cells of undetermined significance) on gynecologic Papanicolaou smear complicating , antepartum Status: Acute Comment: negative HPV 12/2019 (6) Depression affecting Status: Acute Comment: counseling encouraged. (7) Supervision of high risk , antepartum Status: Acute Comment: PRR EDWINA 08/06/2020 girl [place] Spouse: Slade (8) Smoking (tobacco) complicating , unspecified trimester Status: Acute Comment: encouraged cessation (9) Obesity affecting Status: Acute Comment: BMI 41.1- diabetic testing supplies ordered to check x1 week fasting and 2 hours post prandial HBGA1C ordered (10) Status: Acute Qualifiers: Weeks of gestation: 16 weeks Qualified Code(s): Z3A.16 - 16 weeks gestation of Comment: declines carrier. NIPT low risk Report of Operation Date of Procedure: 02/25/20 Pre-Operative Diagnosis: retained POC, incomplete 16 weeks Post-Operative Diagnosis: same Surgery/Procedure Performed:: suction d and c Description of Surgical Findings:: 13 week size uterus with retained placenta Type of Anesthesia:: General Special Medications: cytotec, pitocin Specimen's removed: poc Drains: none Estimated Blood Loss (mL): 200 Fluids Replaced: crystalloid Description of Procedure: Patient was taken to the operating room and placed under MAC local anesthesia. She was prepped and draped in the normal sterile fashion the dorsal lithotomy position. Bladder was drained of clear urine and anterior lip of the cervix was grasped and the uterus sounded to 13cm. Cervix was already spontaneously dilated to allow passage of a 12 suction curette. Progressive passes were made removing the retained products of conception without complication. Sharp curettage confirmed complete removal of the retained products. All instruments were removed from the vagina and excellent hemostasis was noted and the patient was taken to recovery in stable condition. Grafts/Implants Used: none - Complications none - Admit VTE Documentation VTE Present on Admission: No VTE Mechan Device Prophylaxis: SCD's Multi Select Codes - Urinary/Genital Urinary/Genital CPT Codes: 62382 Trmt of incomplete Ab, any TM
--- NOTE | 2020-02-25 04:23 | PCM.DC.D&C ---
Discharge Diet: No Restrictions Discharge Activity: Return to Normal Activity, May Shower, May Take a Tub Bath Allergies/Adverse Reactions: Allergies No Known Allergies Allergy (Verified 02/25/20 03:22) Medications to take at Discharge albuterol sulfate 90 mcg/actuation breath activated powder inhaler 1 inh INHALATION Q4H PRN PRN 01/22/20 blood sugar diagnostic See Rx Instructions .ROUTE .MEDSUPPLY #100 ea 01/22/20 blood-glucose meter See Rx Instructions .ROUTE .MEDSUPPLY #1 ea 01/22/20 multivitamin no.47-iron fum 27 mg-folate no.1 1 mg-dha 300 mg capsule 1 cap PO DAILY 01/22/20 promethazine 12.5 mg tablet 12.5 mg PO Q6H PRN #60 tab 01/22/20 metronidazole 500 mg tablet 500 mg PO BID #14 tab 02/23/20 Doxycycline 100 mg PO BID #10 cap 02/25/20 Naproxen [Naprosyn] 250 - 500 mg PO Q8H PRN PRN #30 tab 02/25/20 Oxycodone HCl/Acetaminophen [Percocet 5-325] 1 - 2 tab PO Q6H PRN PRN 7 Days #10 tab 02/25/20 The following prescriptions were given: Doxycycline 100 mg PO BID #10 cap Transmission Status: Pending to [address] Naproxen [Naprosyn] 250 - 500 mg PO Q8H PRN PRN #30 tab PRN Reason: MILD PAIN Transmission Status: Sent to [address] Oxycodone HCl/Acetaminophen [Percocet 5-325] 1 - 2 tab PO Q6H PRN PRN 7 Days #10 tab PRN Reason: Pain Transmission Status: Received by [address] Primary Care Physician: NOT,DEFINED [NON-STAFF] - Test Results: Test results from this visit will be discussed in further detail at your follow-up appointment, if applicable. Please Follow Up With: Jennifer Beard MD - [phone]
--- NOTE | 2020-02-25 04:33 | NURSING ---
pharmacy called about atb. pharmacy sent to or
--- NOTE | 2020-02-25 04:40 | POC_PTH ---
PATIENT: ANAY SEE DYLON [place] [facility] [id number] AGE/SX: 24/F ROOM: RE02/25/[address]: Dr. Jennifer Beard MD : 1995 BED: DIS: 02/25/2020 SPEC #: [id number] RECD: 02/25/20 09:27 STATUS: NARCISO FAUZIA #: [id number] RADHA: 02/25/20 04:[address]: Jennifer Beard DEPT: SURGICAL PATHOLOGY RECD BY: Rk West ENTERED: 02/25/20 09:29 SP TYPE: PROD CONC OTHR DR: Dr. Collins Jauregui MD Tissues: Product of conception, NOS Procedures: Surgery Specimen Level IV HEADER OPERATION: Suction D & C PRE-OP DIAGNOSIS: Incomplete , retained placenta TISSUE SUBMITTED: Retained products of conception and placenta MICROSCOPIC DIAGNOSIS Endometrium, curettage: Chorionic villi with associated fibrinoid material and acute inflammation consistent with retained products of conception. AM:derek 02/26/20 MICROSCOPIC DESCRIPTION Slides are reviewed. GROSS DESCRIPTION Received in fixative is one container labeled with the patient's name and designated retained products of conception and placenta. The specimen consists of multiple fragments of hemorrhagic soft tissue that in aggregate measure 10 x 9 x 2 cm. tissue is not identified. Diver Tender tissue is submitted in two cassettes. / SJ:derek 02/25/20 TC:2 CPT: 70100
--- NOTE | 2020-02-25 04:51 | ED.RN ---
report called to ian
[2020-02-25] MEDS: Cefazolin 2 GM in 0.9% Normal Saline 100 ML IV (05:00)
[2020-02-25] MEDS: miSOPROStol 200 MCG Tablet PO (05:19)
[2020-02-25] MEDS: Doxycycline 100 MG CAPSULE PO (06:21)
--- NOTE | 2020-02-25 06:45 | SUR.PHASEII ---
REMAINS REQUESTED BY PATIENT AND FOR BURIAL, ALL REQUIRED DOCUMENTS GIVEN WITH INSTRUCTIONS. PATIENT AND VERBALIZE UNDERSTANDING.
== END 2020-02-25 07:12 | disposition home or self-care (01) ==
LOC: ED 04:02 → SDC 04:10 → AC 04:10
PROVIDERS: Emergency Provider Emergency Medicine; PCP Family Medicine; Referring Provider Obstetrics & Gynecology; Visit Provider Obstetrics & Gynecology
PROC: (CPT 59812; principal; 2020-02-25 04:40)
DX: O03.1 Delayed or excessive hemorrhage following incomplete spontaneous abortion (principal)
CPT/HCPCS: 01965; 59812; 80048; 85025; 88305; 99284; J7030; J7120; A4216; J2405

== ENCOUNTER 2020-04-26 19:03 | Emergency (ER) | payer SELFPAY ==
[2020-03-10 16:25] VITALS: BMI 41.3
[2020-04-26 19:04] VITALS: BP 152/93; PULSE 112; RESP 18; TEMP 36.4; O2SAT 98; BMI 39.3
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
[2020-04-26] MEDS: Diphth,Pertuss(Acell),Tet Vac 0.5 ML Vial IM (20:32)
--- NOTE | 2020-04-26 22:48 | ED.RN ---
Pt called out keyona chaim been here for 5 fucking hours im not waiting anymoer this is bullshit the doctor said she would be back 45 minutes ago Emotional support provided, i apologized for the wait and explained the doctor was busy with a critical patient. The patient states she was leaving, this RN offered to at least clean wound and put a dressing on it, patient states i'll just do it since you guys are too incompetent to do it patient walked out of the department at this time.
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
== END 2020-04-26 22:51 ==
PROVIDERS: Emergency Provider Emergency Medicine; PCP Family Medicine
DX: S69.92XA Unspecified injury of left wrist, hand and finger(s), initial encounter (principal); Z23 Encounter for immunization; W25.XXXA Contact with sharp glass, initial encounter; Y93.9 Activity, unspecified; Y92.009 Unspecified place in unspecified non-institutional (private) residence as the place of occurrence of the external cause; Y99.9 Unspecified external cause status
CPT/HCPCS: 73110; 73130; 90715; 99282

== ENCOUNTER 2020-06-24 19:02 | Emergency (ER) | payer SELFPAY ==
[2020-06-24 19:03] VITALS: BP 143/76; PULSE 108; RESP 18; TEMP 37.2; O2SAT 100; BMI 44.8
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
[2020-06-24 19:57] VITALS: PULSE 95; RESP 16; O2SAT 98
[2020-06-24 20:03] VITALS: BP 133/74; PULSE 94; RESP 18; O2SAT 99
[2020-06-24 21:35] VITALS: RESP 16
== END 2020-06-24 21:36 | disposition home or self-care (01) ==
PROVIDERS: Emergency Provider Student in an Organized Health Care Education/Training Program; PCP Family Medicine
DX: O26.891 Other specified pregnancy related conditions, first trimester (principal); R06.00 Dyspnea, unspecified; R06.02 Shortness of breath; O99.511 Diseases of the respiratory system complicating pregnancy, first trimester; J45.909 Unspecified asthma, uncomplicated; O99.331 Smoking (tobacco) complicating pregnancy, first trimester; F17.200 Nicotine dependence, unspecified, uncomplicated; Z3A.08 8 weeks gestation of pregnancy
CPT/HCPCS: 99281

== ENCOUNTER 2020-10-07 13:53 | Emergency (ER) | payer MEDICAID, SELFPAY ==
[2020-10-07 13:54] VITALS: BP 121/84; PULSE 124; RESP 17; TEMP 36.9; O2SAT 99; BMI 43.4
--- NOTE | 2020-10-07 14:07 | EKG12_ITS ---
Test Reason : CP Blood Pressure : / mmHG Vent. Rate : 096 BPM Atrial Rate : 096 BPM P-R Int : 124 ms QRS Dur : 076 ms QT Int : 344 ms P-R-T Axes : 063 022 026 degrees QTc Int : 434 ms Normal sinus rhythm Normal ECG Confirmed by FABIOLA MCDANIELS, SCOT ([id number]), metropolitan editor SHEILA GARCIA ([id number]) on 10/08/2020 11:23:30 AM Referred By: WALTER Confirmed By:SCOT HICKS MD
--- NOTE | 2020-10-07 14:10 | ED.VISSUMM ---
- ER Visit Summary Date of Service: 10/07/20 Chief Complaint: Chest pain, shortness of breath History of Present Illness: The patient is a 25 F with chest pain shortness of breath. Started this morning. She describes sharp pains across her entire chest. Nothing seems to make it better or worse. It does make her feel short of breath. She has also had nausea with vomiting. She describes a mild cough. No documented fevers. She is currently 22 weeks gestation. She has no abdominal pain, vaginal bleeding or vaginal discharge. She has tried using her inhaler as well as Tylenol without any relief. She was exposed to Covid by her [id number]. Physical Examination: Vital signs reviewed. HEENT exam unremarkable. Heart is tachycardic and regular rhythm without murmurs. Lungs are clear to auscultation. Abdomen is soft and nontender. Extremities reveal no edema. Skin exam normal. Neurologic exam normal. Test Results: Troponin normal. EKG sinus rhythm with rate of 96. No ST changes. D-dimer 0.90. Coronavirus test is positive. CTA of the chest shows bilateral upper lobe filling defects consistent with PE. Emergency Department Course and Treatment: Patient's heart rate was 96 on EKG. Currently it is 88-89. She is 98% on room air. I gave her 1 dose of Tylenol for pain and Lovenox for the pulmonary emboli. I discussed initially with the apron operator and then with her SCREED PERSON, Dr. Jay. He discussed with maternal- medicine and we all feel the patient would be safe for home discharge. Her vital signs are unremarkable. Patient will be educated on how to use Lovenox injections at home. She is going to call the SCREED PERSON office for follow-up. She was educated on isolating at home due to her coronavirus diagnosis. Treatment Plan: [] Disposition: Discharge Impression: Pulmonary emboli, COVID-19 This note was generated with [employer] dictation software. It may contain incorrect words, spelling, and punctuation that were not noted in review of the chart prior to signing ED Disposition - Plan for ED Patient: Disposition: Home or Assisted Living Instructions: Pulmonary Embolism, Coronavirus Disease 2019 COVID-19 and Childbirth Prescriptions: Enoxaparin Sodium [Lovenox] 110 mg SQ BID #60 syringe Prescription Printed Referrals: Collins Jauregui MD [STAFF PHYSICIAN] - Rafi Jay DO [STAFF PHYSICIAN] -
[2020-10-07] MEDS: Acetaminophen 325 MG Tablet 650 MG PO (14:45)
--- NOTE | 2020-10-07 14:52 | CT_ITS ---
STUDY: CTA CHEST REASON FOR EXAM: Female, 25 years old. ELEV DDIMER/CP TODAY. Patient -shielded. Hx of asthma RADIATION DOSAGE (If Supplied By Facility): CTDIvol = ( 13.85 ) mGy, DLP = ( 476.95 ) mGycm TECHNIQUE: The examination was performed with the intravenous administration of IV 100mL Isovue-370. Post-processing of the angiographic images was performed, with multiplanar reformation and 3D reconstruction. Individualized dose optimization techniques were used for this CT. COMPARISON: Comparison is made with prior examination dated 11/24/2017. FINDINGS: Nonocclusive intraluminal filling defects in branches of the right and left upper lobe pulmonary arteries slightly worse in the right upper lobe. Normal thoracic aorta and visualized great vessels. There is no demonstrated aortic dissection. Normal heart and pericardium. Normal mediastinum. Normal hilar regions. Normal visualized trachea and bronchi. The lungs are well expanded. Normal pulmonary parenchyma. Normal pleura. Normal chest wall structures. There are degenerative changes of thoracic spine. Normal visualized upper abdomen. CT/CTA Chest W/WO Contrast IMPRESSION: Multiple nonobstructive intraluminal filling defects in branches of both the right and left upper lobe pulmonary arteries slightly more prominent in the right upper lobe Electronically Signed: Steve Sánchez MD at 15:43 EST , Service support ,
[2020-10-07 15:07] VITALS: BP 124/78; PULSE 90; RESP 14; O2SAT 98
--- NOTE | 2020-10-07 16:10 | CM.ED ---
SOCIAL WORK Informant: Dr. Skaggs Reason for Consult: Resources Dr. Skaggs inquired about insurance coverage for Lovenox. Discussed with pharmacy. Patient with [employer] insurance. Pharmacy reports prescription is covered. Dr. Skaggs and nurse lisa. Uma Emerson, RESEARCH PROGRAM ASSISTANT, SUBSTATION OPERATOR
[2020-10-07 16:13] VITALS: BP 110/66; PULSE 84; RESP 18; O2SAT 99
[2020-10-07] MEDS: Enoxaparin 100 MG/ML Syringe SC (16:26)
[2020-10-07 17:19] VITALS: BP 98/45; PULSE 101; RESP 19; TEMP -7.7; TEMP 18; O2SAT 98
== END 2020-10-07 17:48 | disposition home or self-care (01) ==
PROVIDERS: Emergency Provider Emergency Medicine
DX: I26.99 Other pulmonary embolism without acute cor pulmonale (principal); U07.1 COVID-19; Z20.822 Contact with and (suspected) exposure to COVID-19; Z3A.22 22 weeks gestation of pregnancy; O26.892 Other specified pregnancy related conditions, second trimester; O99.512 Diseases of the respiratory system complicating pregnancy, second trimester; J45.909 Unspecified asthma, uncomplicated
CPT/HCPCS: 71275; 84484; 85379; 87426; 93005; 96372; 99284; Q9967

== ENCOUNTER 2020-11-05 13:40 | Outpatient (CLI) | payer MEDICAID, SELFPAY ==
[2020-11-05 14:03] VITALS: BMI 37.5
[2020-11-05 14:08] VITALS: BP 108/59; PULSE 93
[2020-11-05 14:09] VITALS: TEMP 37.4
--- NOTE | 2020-11-05 14:32 | OB.TRI.NOTE ---
History of Present Illness Date of Service: 11/05/20 Was patient seen by the physician?: No Reason For Visit: R/O LABOR Date of Service: 11/05/20 Gestational age: 26 Allergies No Known Allergies Allergy (Verified 10/07/20 13:54) - Pertinent Past Medical History Medical History: Past Medical History (Last Reviewed 03/10/20 @ 16:21 by Desirae De La Cruz) Asthma Obesity Chronic back pain Surgical History: Past Surgical History (Last Updated 03/10/20 @ 16:21 by Desirae De La Cruz) S/P dilatation and curettage Physical Exam Vitals: Vital Signs Temp Pulse BP 99.3 F H 93 108/59 L 11/05/20 14:09 11/05/20 14:08 11/05/20 14:08 NST - FHR Rate Baby A Baseline: 150s Uterine Activity:: no contractions Impression/Plan 25yo at 26+ weeks gestation with care elsewhere- c/o vaginal discharge (yellow) and contractions 1) False labor- no contractions on monitor- dc home needs to follow up with her OB provider 2) vaginal discharge- recommend calling OCCUPATIONAL THERAPY PROGRAM DIRECTOR and making appointment for evaluation.
== END 2020-11-05 14:40 | disposition home or self-care (01) ==
LOC: WPOUT 13:57 → WP 13:58
PROVIDERS: Referring Provider Obstetrics & Gynecology; Visit Provider Obstetrics & Gynecology
DX: O47.02 False labor before 37 completed weeks of gestation, second trimester (principal); Z3A.26 26 weeks gestation of pregnancy; N89.8 Other specified noninflammatory disorders of vagina
CPT/HCPCS: 59025; 59050; 99218; G0378